=== PATIENT | female | born 1980 | race Caucasian/White ===

== ENCOUNTER 2023-12-04 08:15 | Outpatient (CLI) | payer OTHER ==
[~2023-12-04] VITALS: Ht 162.6 cm; Wt 147.4 kg
[2023-12-04] MEDS ORDERED: MEPERIDINE 100 MG INJ. 100 MG/ML VIAL ONE (08:47)
[2023-12-04] MEDS ORDERED: MIDAZOLAM HCL 5 MG/5 ML VIAL ONE (08:47)
[2023-12-04 08:52] LABS: HCG,QUAL RESULT NEGATIVE (NEGATIVE)
== END 2023-12-04 16:20 | disposition home or self-care (01) ==
LOC: SLB 08:15 → SDS 08:16 → SMU 08:20 → SLB 16:20 → EDSTATUS 12-05 10:00
PROVIDERS: ATTEND Internal Medicine Gastroenterology
DX: K92.2 Gastrointestinal hemorrhage, unspecified (principal); Z53.8 Procedure and treatment not carried out for other reasons
CPT/HCPCS: 84703; J2175; J2250

== ENCOUNTER 2024-02-10 08:05 | Day surgery (SDC) | payer OTHER ==
[~2024-02-10] VITALS: Ht 162.6 cm; Wt 143.3 kg
[2024-02-10] MEDS ORDERED: MEPERIDINE 100 MG INJ. 100 MG/ML VIAL ONE (08:34)
[2024-02-10] MEDS ORDERED: MIDAZOLAM HCL 5 MG/5 ML VIAL ONE (08:34)
[2024-02-10] MEDS ORDERED: DIPHENHYDRAMINE INJ 50 MG/ML VIAL IVP ONE (08:45)
[2024-02-10 09:05] LABS: HCG,QUAL RESULT NEGATIVE (NEGATIVE)
[2024-02-10] MEDS ORDERED: SIMETHICONE 80 MG TAB.CHEW ONE (10:23)
[2024-02-10] MEDS: SIMETHICONE 80 MG TAB.CHEW PO ONE (10:25)
[2024-02-10 13:51] VITALS: BP_SYST 135; PULSE 71; RESP 20; TEMP 97.6; O2SAT 98
== END 2024-02-10 11:00 | disposition home or self-care (01) ==
LOC: SMU 08:05 → SDS 08:05 → SMU 08:13 → SDS 11:00
PROVIDERS: ATTEND Internal Medicine Gastroenterology
DX: K62.5 Hemorrhage of anus and rectum (principal); K57.30 Diverticulosis of large intestine without perforation or abscess without bleeding; K64.8 Other hemorrhoids; I11.0 Hypertensive heart disease with heart failure; I50.22 Chronic systolic (congestive) heart failure; I11.9 Hypertensive heart disease without heart failure; K21.9 Gastro-esophageal reflux disease without esophagitis; G47.30 Sleep apnea, unspecified; Z79.84 Long term (current) use of oral hypoglycemic drugs; Z79.899 Other long term (current) drug therapy
CPT/HCPCS: 45378; 99152; 84703; 82948; G0378; J2250; J2175